=== PATIENT | female | born 1990 | race African-American/Black ===

== ENCOUNTER 2017-03-09 12:19 | Emergency (ER) | payer BC ==
[~2017-03-09] VITALS: Ht 165.1 cm; Wt 90.7 kg
--- NOTE | ~2017-03-09 | CT71 ---
[facility] A Service of [facility] & [facility] RADIOLOGY TEXT RESULTS PATIENT: NAOMIE PEARSON LOCATION: [facility] : 88 UNIT #: [id number] AGE: [address]: Alf Granados MD SEX: F ORDER DR: [id number] [facility] [address] [place], [place] [address] [id number] E MR#: [id number] Acc #: [id number] NAME: NAOMIE PEARSON : 1990 SEX: F STUDY DATE/TIME: 03/09/2017 18:38 UNIT: [facility] ROOM: STUDY DESCRIPTION: CT Head Wo Contrast Attending Physician: Dave Granados M.D. Ordering Physician: Ed Tl Mcknight M.D. Primary Care Physician: Jeanne Oconnor M.D. MEDICAL IMAGING REPORT This report is preliminary unless electronic signature is present EXAM CT brain without contrast. HISTORY Dizzy, headache and blurred vision and near syncope today. FINDINGS Axial noncontrast images were obtained from the skull base to the vertex. This CT exam was performed with one or more of the following radiation dose reduction techniques: automatic exposure control, adjustment of mA and/or kV according to patient size, and iterative reconstruction. Ventricular size and configuration are normal. There is no evidence of acute infarct or hemorrhage. There are no extra-axial fluid collections. No mass lesion or mass effect is seen. There are no skull fractures. IMPRESSION Normal noncontrast head CT. Dictated by... Raymond Miranda M.D. THIS IS AN ELECTRONICALLY VERIFIED REPORT Raymond Miranda M.D. at 03/10/2017 4:08 PM DFL/nehal TD: 03/10/2017 09:18 JOB #: [id number] MEDICAL IMAGING REPORT Page 1 of 1 COPY
--- NOTE | ~2017-03-09 | EKG ---
PATIENT: NAOMIE PEARSON UNIT #: [id number] Ventricular Rate: 93 BPM Atrial Rate: 93 BPM P-R Interval: 154 ms QRS Duration: 86 ms Q-T Interval: 356 ms QTC Calculation(Bezet): 442 ms P Lincoln: 36 degrees Calculated R [place]: 54 degrees Calculated T Lincoln: 33 degrees Diagnosis Line: Normal sinus rhythm Diagnosis Line: Normal ECG Diagnosis Line: No previous ECGs available Diagnosis Line: Confirmed by ORA WEST MD ([id number]) on 03/09/2017 Diagnosis Line: 6:59:33 PM INTERPRETING MD: BRETT RODAS
[~2017-03-09 12:19] MED LIST: FLEXERIL10 MG PO; KETOPROFEN PO; NAPROSYN500 MG PO; NO MEDICATIONS; ORTHO-NOVUM1 TAB PO; VIT E PO
[2017-03-09 14:45] LABS: BASOPHIL% 0.3 % (0-2.5); EOSINOPHIL% 0.1 % (0.0-7.0); HEMATOCRIT 39.7 % (35.0-45.0); HEMOGLOBIN 13.1 gm/dL (12.0-16.0); LYMPHOCYTE# 1.2 X10e3 (1.0-3.5); LYMPHOCYTE% 8.3 % (17.0-45.0); MEAN CELL VOLUME 85.9 FL (83-96); MEAN CORPUSCULAR HEMOGLOBIN 28.2 PG (28-34); MEAN CORPUSCULAR HGB CONC 32.9 g/dL (30-36); MEAN PLATELET VOLUME 6.7 FL (6.5-11.5); MONOCYTE# 0.7 X10e3 (0-1.0); MONOCYTE% 4.8 % (3.0-12.0); NEUTROPHIL# 12.4 X10e3 (1.5-7.1); NEUTROPHIL% 86.5 % (40-75); PLATELET COUNT 470 X10e3 (140-420); RED BLOOD COUNT 4.62 X10e (3.90-5.30); RED CELL DISTRIBUTION WIDTH 13.8 % (11.0-15.5); WHITE BLOOD COUNT 14.4 X10e3 (4.0-10.5)
[2017-03-09 14:48] LABS: DIFF IND NO
[2017-03-09 15:08] LABS: ALBUMIN SERUM 4.2 g/dL (3.5-5.0); BILIRUBIN, DIRECT 0.1 mg/dL (0.0-0.2); BILIRUBIN,INDIRECT 0.6 mg/dL (0.0-0.9); BILIRUBIN,TOTAL 0.7 mg/dL (0.2-2.0); BUN/CREATININE RATIO 11.42; CALCIUM SERUM 9.1 mg/dL (8.4-10.2); CREATININE SERUM 0.7 mg/dL (0.6-1.4); GLOM FILT RATE Estimated 137.6 mL/min (>60); POTASSIUM 3.7 mmol/L (3.5-5.1)
[2017-03-09 17:23] LABS: POC - CKMB <1.0 ng/mL (0.0-7.9); POC - TROPONIN <0.05 ng/mL (<=0.05)
[2017-03-09 18:38] LABS: URINE SOURCE CLEAN CATCH
[2017-03-09 18:45] LABS: URINE APPEARANCE TURBID; URINE BILIRUBIN NEG (NEG); URINE BLOOD NEG (NEG); URINE COLOR YELLOW; URINE GLUCOSE NEG (NEG); URINE KETONE NEG (NEG); URINE LEUKOCYTE ESTERASE TRACE (NEG); URINE NITRATE NEG (NEG); URINE PROTEIN TRACE (NEG); URINE SPECIFIC GRAVITY 1.022 (1.003-1.035)
[2017-03-09 18:48] LABS: CULTURE INDICATED? YES; URBCS1 AUWI 0-2 /[HPF] (0-2); URINE BACTERIA AUWI 2+ (NEGATIVE); URINE SQUAMOUS EPITHELIAL CELL MOD /[HPF]
== END 2017-03-09 20:03 | disposition home or self-care (01) ==
LOC: CED 12:19
PROVIDERS: Emergency Medicine
DX: G44.209 Tension-type headache, unspecified, not intractable (principal); N39.0 Urinary tract infection, site not specified; R42 Dizziness and giddiness; I10 Essential (primary) hypertension; Z87.442 Personal history of urinary calculi
CPT/HCPCS: 36415; 70450; 80048; 80076; 81003; 82553; 82947; 84484; 84703; 85025; 87086; 93005; 96361; 96374; 99284; J1885